=== PATIENT | male | born 1945 | race Caucasian/White ===

== ENCOUNTER → 2016-08-07 09:34 | Outpatient (CLI) | payer MEDICARE ==
[2013-03-20 10:22] VITALS: BMI 19.6
[~2016-08-07 09:34] MED LIST: ASPIRIN 81 MG E81 MG PO; LISINOPRIL2.5 MG PO; PLAVIX75 MG PO; PRAVACHOL40 MG PO; TOPROL XL25 MG PO; VIAGRA25 MG PO
[2016-08-07 10:03] LABS: BASOPHILS 0.4 % (0.0-2.0); EOSINOPHILS 2.6 % (0-7); HEMATOCRIT 45.1 % (42.0-54.0); HEMOGLOBIN 15.3 g/dL (13.5-17.5); IMMATURE GRANULOCYTES 0.2 % (0-5); LYMPHOCYTES 25.4 % (15-50); MCH 32.6 pg (26.0-34.0); MCHC 33.9 g/dL (31.0-37.0); MEAN PLATELET VOLUME 10.3 fL (7.4-10.4); MONOCYTES 10.3 % (2-11); NEUTROPHILS 61.1 % (40-80); RDW 12.6 % (11.5-14.5)
[2016-08-07 10:05] LABS: PLATELET COUNT 141 10x3/uL (130-400)
[2016-08-07 10:54] LABS: ALBUMIN 3.8 g/dL (3.4-5.0); ANION GAP 9.7 mmol/L (8-16); BILIRUBIN - TOTAL 0.96 mg/dL (0.2-1.3); CALCIUM 9.1 mg/dL (8.5-10.1); CARBON DIOXIDE 30.6 mmol/L (21.0-32.0); CHOL - HDL RATIO 2.5 ratio (2.3-4.9); CREATININE - SERUM 1.2 mg/dL (0.6-1.3); LDL-HDL RATIO 1.2 ratio (1.5-3.5); POTASSIUM - SERUM 4.3 mmol/L (3.5-5.1); PROTEIN - SERUM 7.1 g/dL (6.4-8.2); THYROID STIMULATING HORMONE 1.37 uIU/mL (0.36-3.74)
== END | disposition home or self-care (01) ==
LOC: D.LAB 09:34
PROVIDERS: Family Medicine
DX: Z00.00 Encounter for general adult medical examination without abnormal findings (principal); Z12.5 Encounter for screening for malignant neoplasm of prostate; E78.5 Hyperlipidemia, unspecified; J44.9 Chronic obstructive pulmonary disease, unspecified; I25.10 Atherosclerotic heart disease of native coronary artery without angina pectoris; D09.0 Carcinoma in situ of bladder

== ENCOUNTER → 2017-07-02 09:07 | Outpatient (CLI) | payer MEDICARE ==
[2013-03-20 10:22] VITALS: BMI 19.6
== END | disposition home or self-care (01) ==
LOC: D.CT 09:07
DX: I71.4 Abdominal aortic aneurysm, without rupture (principal)

== ENCOUNTER 2017-07-31 05:00 | Inpatient (IN) | payer MEDICARE ==
[2017-07-29 14:43] LABS: ALKALINE PHOSPHATASE 73 U/L (46-116); ALT (SGPT) 26 U/L (10-68); BILIRUBIN - TOTAL 1.02 mg/dL (0.2-1.3); CALC OSMOLALITY 272 mosm/kg (275-300); CALCIUM 9.2 mg/dL (8.5-10.1); CARBON DIOXIDE 30.2 mmol/L (21.0-32.0); CHLORIDE - SERUM 100 mmol/L (98-107); POTASSIUM - SERUM 4.1 mmol/L (3.5-5.1); PROTEIN - SERUM 7.7 g/dL (6.4-8.2); SODIUM 136 mmol/L (136-145); UREA NITROGEN 22 mg/dL (7-18); eGFR NON AFRICAN AMERICAN 78 mL/min (90-120)
[2017-07-29 14:44] LABS: GLUCOSE 65 mg/dL (74-106)
[2017-07-29 14:46] LABS: APPEARANCE CLEAR (CLEAR); BILIRUBIN NEGATIVE (NEGATIVE); COLOR YELLOW (YELLOW); GLUCOSE NEGATIVE (NEGATIVE); KETONE NEGATIVE (NEGATIVE); NITRITE NEGATIVE (NEGATIVE); PROTEIN NEGATIVE (NEGATIVE); UROBILINOGEN NORMAL (NORMAL)
[2017-07-29 14:48] LABS: RED CELLS - URINE 0-5 /hpf (0-5)
[2017-07-29 14:49] LABS: BACTERIA FEW /hpf (NONE SEEN); MUCUS <1+ /lpf (NONE SEEN)
[2017-07-29 14:59] LABS: BASOPHILS 0.3 % (0-2); EOSINOPHILS 1.9 % (0-7); HEMATOCRIT 46.4 % (42.0-54.0); HEMOGLOBIN 15.9 g/dL (13.5-17.5); IMMATURE GRANULOCYTES 0.1 % (0-5); LYMPHOCYTES 23.6 % (15-50); MCH 32.8 pg (26.0-34.0); MCHC 34.3 g/dL (31.0-37.0); MCV 95.7 fL (80.0-100.0); MEAN PLATELET VOLUME 10.7 fL (7.4-10.4); MONOCYTES 7.9 % (2-11); NEUTROPHILS 66.2 % (40-80); PLATELET COUNT 160 10x3/uL (130-400); RBC 4.85 10x6/uL (4.20-6.10); RDW 12.7 % (11.5-14.5); WBC 6.9 10x3/uL (4.8-10.8)
[2017-07-29 15:10] LABS: APTT 28.9 SECONDS (22.8-39.4); INR 0.96 (0.85-1.17); PROTIME 12.4 SECONDS (11.6-15.0)
[2017-07-31] VITALS (22 sets, daily range): BP systolic 99–126; BP diastolic 42–100; Ht 185.4 cm; Wt 68.6 kg
[~2017-07-31] VITALS: Ht 185.4 cm; Wt 68.6 kg
--- NOTE | ~2017-07-31 | HP ---
PATIENT: GLORY GAMEZ MEDICAL RECORD: [id number] ACCOUNT: [id number] LOCATION:[facility] : 47 ADMISSION DATE: 07/31/17 HISTORY AND PHYSICAL EXAMINATION NameGLORY GAMEZ (71yo, M) ID# [id number]. Date/Time07/16/2017 01:77EVWTB09/16/194[facility] Dept.[facility] [facility] ClinicProviRiver CASTELLANOS MDInsuranceMed Primary: [facility] Insurance # : [id number] Policy/Group # : [id number] PCP : MAMADOU ANDERSON Referring Provider Name : MAMADOU ANDERSON Employer Name : [employer] Prescription: CMX - Member is eligible. Chief Complaint AAA, abdominal aortic aneurysm Evaluate for AAA repair Patient's Care Team Primary Care Provider (): MAMADOU ANDERSON: [address] [place] [address], [place] [address], [place] [address], , Referring Provider (): MAMADOU ANDERSON: [address] [place] [address], [place] [address], [place] [address], , Patient's Pharmacies [facility] (ERX): [phone] [place] [address], , Vitals BP:1 / sitting 07/16/2017 01:58 pmHR:72/reg 07/16/2017 01:58 pmHt:6 ft 1 in 07/16/2017 01:59 pmWt:144 lbs 07/16/2017 03:02 pmBMI:19 07/16/2017 03:02 pmAllergies Reviewed Allergies NKDAMedications Reviewed Medications lisinopril 2.5 mg tablet TK 1 T PO D006/27/17 filledCaremarkmetoprolol succinate ER 25 mg tablet,extended release 24 hr TK 1 T PO D007/11/17 filledCaremarkpravastatin 40 mg tablet TK 1 T PO D007/11/17 filledCaremarkViagra 25 mg tablet Take 1 tablet(s) every day by oral route.07/15/17 [facility] FoundationProblems Reviewed Problems Abdominal aortic aneurysm - Onset: 07/15/2017 Danie hematuria Family History Reviewed Family History Mother- Heart disease - PPMFather- Congestive heart failureSocial History Reviewed Social History Cardiology Family history of heart disease?: Y Smoking Status: Former smoker (Notes: quit 2012) High Cholesterol: Y High blood pressure: Y Exercise level: None Overweight: N Obese: N HISTORY AND PHYSICAL [id number] GLORY GAMEZ Diabetes: N Alcohol intake: None Surgical History Reviewed Surgical History Other - 2010 - STENTS (HEART) X3 Past Medical History Reviewed Past Medical History Blood Clots: Y Heart Disease: Y - [place], STENTS X 3 Heart stents: Y - 3 Hyperlipidemia: Y Hypertension: Y Notes: BLOOD CLOTS, HEART ATTACK Documents for Discussion N/A Screening None recorded. HPI Peripheral Vascular Disease Reported by patient. Severity: not limiting Associated Symptoms: no weakness; no numbness; no paresthesias; no skin discoloration; no fever Notes: 71-year-old male with history of abdominal aortic aneurysm, asymptomatic, and has been followed by Dr. DEVINE. The aneurysm is increased in size by about 5 mm over the past 2 years. The patient has risk factors of smoking and hypertension and a family history of a bra in aneurysm but no abdominal or thoracic aneurysms.. He denies claudication or rest pain he currently lives alone ROS Patient reports no fever, no night sweats, no significant weight gain, no significant weight loss, and no exercise intolerance. He reports no dry eyes, no irritation, and no vision change. He reports no difficulty hearing and no ear pain. He reports no frequent nosebleeds and no nose/sinus problems. He reports no sore throat, no bleeding gums, no snoring, no dry mouth, no mouth ulcers, no or a l abnormalities, and no teeth problems. He reports no jugular vein distension and no swollen glands. He reports no chest pain, no arm pain on exertion, no shortness of breath when walking, no shortness of breath when lying down, no palpitations, and no kn o wn heart murmur. He reports no cough, no wheezing, no shortness of breath, and no coughing up blood. He reports no abdominal pain, no vomiting, normal appetite, no diarrhea, not vomiting blood, no nausea, and no constipation. He reports no incontinence, n o difficulty urinating, no hematuria, and no increased frequency. He reports no muscle aches, no muscle weakness, no arthralgias/joint pain, no back pain, and no swelling in the extremities. He reports no abnormal mole, no jaundice, and no rashes. He repor t s no loss of consciousness, no weakness, no numbness, no seizures, no dizziness, and no headaches. He reports no depression, no sleep disturbances, feeling safe in relationship, and no alcohol abuse. He reports no fatigue. He reports no swollen glands and no bruising. He reports no runny nose, no sinus pressure, no itching, no hives, and no frequent sneezing. ROS as noted in the HPI Physical Exam Patient is a 71-year-old male. Constitutional: General Appearance well nourished and developed and healthy-appearing. Level of Distress NAD. Ambulation ambulating normally. HISTORY AND PHYSICAL [id number] GLORY GAMEZ Cardiovascular: Apical Impulse not displaced or no thrill. Heart Auscultation normal s1 and s2; no murmurs, rubs, or gallops; and RRR. Arterial Pulses no abdominal aorta bruits, femoral bruits , or popliteal bruits and 2+ bilateral, carotid 2+ bilateral, femoral 2+ bilateral, popliteal 2+ bilateral, and dorsalis pedis 2+ bilateral; to loss palpable bilateral femoral pulses 1+ palpable bilateral dorsalis pedis pulses, no Doppler left posterior tibial, week Doppler right posterior tibial.. Edema no edema or varicosities. Lungs: Repiratory Effort no dyspnea. Percussion no hyperresonance or dullness or flatness. Auscultation no wheezing, rhonchi, or rales / crackles and breathing sounds normal, good air movement, and CTA except as noted. Abdomen: Bowl Sounds normal. Inspection and Palpation no tenderness, guarding, masses, or rebound tenderness and soft and non-distended; palpable pulsatile periumbilical abdominal mass. Liver non-tender and no hepatomegaly. Spleen non-tender and no splenomegaly. Hernia none palpable. Musculoskeletal System: Gait And Stance normal gait and stance. Digits and Nails normal nails and no cyanosis. Neurologic: Cranial Nerves grossly intact. Reflexes DTRs 2+ bilaterally throughout. Sensation grossly intact. Lymph Nodes: Lymph Nodes no cervical LAD, supraclavicular LAD, axillary LAD, or inguinal LAD. Eyes: Lids and Conjunctivae no discharge or pallor and non-injected. Pupils PERRLA. Cornea grossly intact. EOM EOMI. Lens clear. Sclerae non-icteric. Neck: Neck no masses, enlarged lymph nodes, or carotid bruits and supple and trachea midline. Thyroid no enlargement or nodules and non-tender. Skin: Inspection and Palpation no rash, lesions, ulcers, jaundice, or abnormal nevi. Assessment / Plan 1. Abdominal aortic aneurysm I71.4: Abdominal aortic aneurysm, without rupture Patient Instructions the patient will develop a plan for family to be with him in the perioperative period and we will be in touch after the film was reviewed by [employer] Discussion Notes we discussed the risk of surgery, the alternatives, and the benefits. It is likely the patient will require right femoral cutdown with localized endarterectomy and a percutaneous approach on t he left. It appears that the left proximal common iliac is a localized dissection and there is severe bilateral iliac calcification. The aneurysm appears to have a normal neck with a good landing zone. HISTORY AND PHYSICAL [id number] GLORY GAMEZ, STEFANIE Coreas MD at 1556 CC: [id number] DICTATION DATE: 07/16/17 1310 [employer]EST [employer] EQUIPMENT OPERATOR: JERMAINE 07/24/17 0916 PRE IN [facility] [address] [place] [address]
--- NOTE | ~2017-07-31 | OP ---
PATIENT NAME: GLORY GAMEZ MEDICAL RECORD: [id number] :47 LOCATION:D.CVI D.CV05 ADMISSION DATE:07/31/17 SURGEON: HÉCTOR CASTELLANOS MD DATE OF OPERATION: 07/31/2017 SURGEON: Héctor Castellanos MD DUMP GROUNDS CHECKER: Jeremias Gutiérrez MD. PROCEDURES PERFORMED: 1. Right femoral endarterectomy. 2. Open femoral exposure left femoral artery. 3. Placement of endoluminal abdominal aortic aneurysm repair with bifurcated device and 2 docking limbs. 4. Rad SNI Endo AAA repair. PREOPERATIVE DIAGNOSES: Abdominal aortic aneurysm and right femoral stenosis. POSTOPERATIVE DIAGNOSES: Abdominal aortic aneurysm and right femoral stenosis. ANESTHESIA: General endotracheal anesthesia. ESTIMATED BLOOD LOSS: 200 cc with 100 cc Cell Saver retransfusion. COMPLICATIONS: None. SPECIMENS: None. CONDITION: Stable. DISPOSITION: ICU. OPERATIVE FINDINGS: 1. Placement of the bifurcated endograft without complication and 2 limbs to just above the bifurcation of the iliacs. 2. Dense posterior plaque in the right femoral with an endarterectomy. The artery at that point was somewhat thin and slightly enlarged, although not clearly an aneurysm, was closed primarily. Good resultant pulses in the profunda and superficial femoral and later stronger pedal pulses on the left side cutdown performed. 3. Completion arteriogram with good placement and good flow. OPERATIVE INDICATION: Enlarging abdominal aortic aneurysm, severe femoral arterial disease and stenosis. OPERATIVE SUMMARY IN DETAIL: The patient brought to the operating suite where general anesthesia was obtained, monitoring catheter was placed by anesthesia and the patient placed supine on the table. The abdomen, groins and thighs were sterilely prepped and draped. On the right side oblique incision was made, cut and taken down through subcutaneous tissue. Femoral artery exposed, branches encircled and the external iliac was exposed behind the inguinal ligament where control was gained proximally. On the left side, the femoral artery was exposed and branches were encircled with loops. Heparin was given. After the heparin had been, given inflow to the right groin was clamped with backbleeding controlled with vessel loops. The arteriotomy was made, taken up just behind OPERATIVE REPORT [id number] GLORY GAMEZ the inguinal ligament. Endarterectomy was performed. The plaque feathered well proximally and was removed distally. It also feathered well. All bits of loose debris were removed. Proximal control was contained with a vessel loop and the 14-H[place] Konger sheath was placed in the right. Arteriogram was performed and an 8-[place]er sheath placed on the left. No predilation was performed. The 14-[place]er sheath on the right was placed just at the aortic bifurcation. The main body was inserted and using the previously made arteriogram, position was confirmed. First segment was deployed then the implant was positioned precisely at approximately 0.5 cm below the renal arteries. Angiographic catheter was removed and the remainder of the proximal stent was deployed. The polymer injection port was attached after the polymer had been premixed. The AB guidewire tip brought down to the radiopaque marker and the polymer was observed to be filling normally. The integrated crossover lumen was used to capture the guidewire. Position was confirmed and the 0.18 guidewire was placed. A 14 x 140 iliac limb system was deployed over the wire and place at the appropriate site after arteriogram to confirm the bifurcation and after dilating the proximal portion with a coated balloon. Then the right limb, also 14 x 140 was placed. Each side individually was dilated at 3 separate sites with a 12 x 40 balloon on the limbs. Final injections were noted to be a good position. Slightly lower proximal position of the left limb, but well within the main body. On the left side artery, the was closed with interrupted suture and flow was restored. On the right side, the endarterectomy site was again irrigated and closed. Back bleeding was allowed and the anastomosis completed. Good signal was noted. Both groins were closed in 3 layers. Dermabond was placed on the skin. Good pulse examination and anesthesia reversed to CV ICU. TRANSINT:[id number] Voice Confirmation ID: [id number] DOCUMENT ID: [id number] HÉCTOR CASTELLANOS MD at 1043 CC: MAMADOU ANDERSON and TALITA DEVINE [id number] DICTATION DATE: 07/31/17 1319 LEAD PRINCIPAL TECHNICAL ARCHITECT: 07/31/17 1345 ADM IN [facility] [address] [place] [id number]
[2017-08-01] VITALS (25 sets, daily range): BP systolic 90–142; BP diastolic 44–71
[2017-08-01 03:47] LABS: MCH 32.2 pg (26.0-34.0); MCHC 33.3 g/dL (31.0-37.0); MCV 96.5 fL (80.0-100.0); MEAN PLATELET VOLUME 10.2 fL (7.4-10.4); RBC 3.73 10x6/uL (4.20-6.10); RDW 12.8 % (11.5-14.5); WBC 9.2 10x3/uL (4.8-10.8)
[2017-08-01 03:54] LABS: CALC OSMOLALITY 279 mosm/kg (275-300); CALCIUM 8.1 mg/dL (8.5-10.1); CARBON DIOXIDE 29.4 mmol/L (21.0-32.0); CHLORIDE - SERUM 104 mmol/L (98-107); POTASSIUM - SERUM 3.7 mmol/L (3.5-5.1); SODIUM 140 mmol/L (136-145); UREA NITROGEN 10 mg/dL (7-18); eGFR NON AFRICAN AMERICAN 78 mL/min (90-120)
[2017-08-01 04:02] LABS: GLUCOSE 129 mg/dL (74-106)
[2017-08-02] VITALS (24 sets, daily range): BP systolic 110–135; BP diastolic 31–79
[2017-08-02 05:02] LABS: HEMATOCRIT 35.2 % (42.0-54.0); HEMOGLOBIN 11.8 g/dL (13.5-17.5); MCH 32.5 pg (26.0-34.0); MCHC 33.5 g/dL (31.0-37.0); MEAN PLATELET VOLUME 10.6 fL (7.4-10.4); RBC 3.63 10x6/uL (4.20-6.10); RDW 12.9 % (11.5-14.5); WBC 9.8 10x3/uL (4.8-10.8)
[2017-08-02] MEDS ORDERED: NICODERM C1 PATCH .1 TRANSDERM (12:13)
[2017-08-02] MEDS ORDERED: HYDROCODON-ACE1 EAC7 PO (12:17)
[2017-08-03] VITALS (8 sets, daily range): BP systolic 110–126; BP diastolic 64–68
[2017-08-03 05:30] LABS: HEMOGLOBIN 12.2 g/dL (13.5-17.5); MCH 32.2 pg (26.0-34.0); MCHC 33.9 g/dL (31.0-37.0); MEAN PLATELET VOLUME 10.3 fL (7.4-10.4); RBC 3.79 10x6/uL (4.20-6.10); RDW 12.7 % (11.5-14.5); WBC 9.4 10x3/uL (4.8-10.8)
== END 2017-08-03 10:50 | disposition home or self-care (01) | DRG 269 ==
LOC: D.SDCHOLD 05:00 → D.CVICU 05:00 → D.SDCHOLD 07:30 → D.CVICU 11:29
PROVIDERS: Thoracic Surgery (Cardiothoracic Vascular Surgery)
PROC: 04CK0ZZ Extirpation of Matter from Right Femoral Artery, Open Approach (ICD-10-PCS; 2017-07-31)
PROC: 04V03EZ Restriction of Abdominal Aorta with Branched or Fenestrated Intraluminal Device, One or Two Arteries, Percutaneous Approach (ICD-10-PCS; principal; 2017-07-31 07:30)
DX: I71.4 Abdominal aortic aneurysm, without rupture (principal); I10 Essential (primary) hypertension; E78.5 Hyperlipidemia, unspecified; I70.201 Unspecified atherosclerosis of native arteries of extremities, right leg

== ENCOUNTER → 2017-08-23 08:15 | Outpatient (CLI) | payer MEDICARE ==
[2017-07-31 14:25] VITALS: BMI 20.5
[~2017-08-23 08:15] MED LIST changes: +HYDROCODON-ACE1 EAC7 PO; +NICODERM C1 PATCH .1 TRANSDERM
== END | disposition home or self-care (01) ==
LOC: D.CT 08:15
DX: I71.4 Abdominal aortic aneurysm, without rupture (principal)

== ENCOUNTER → 2018-04-07 10:43 | Outpatient (CLI) | payer MEDICARE ==
[2017-07-31 14:25] VITALS: BMI 20.5
== END | disposition home or self-care (01) ==
LOC: D.CT 10:43
DX: I71.4 Abdominal aortic aneurysm, without rupture (principal)

== ENCOUNTER → 2018-11-03 13:21 | Outpatient (CLI) | payer MEDICARE ==
[2017-07-31 14:25] VITALS: BMI 20.5
== END | disposition home or self-care (01) ==
LOC: D.US 13:21
PROVIDERS: ATTEND Thoracic Surgery (Cardiothoracic Vascular Surgery)
DX: I70.209 Unspecified atherosclerosis of native arteries of extremities, unspecified extremity (principal)

== ENCOUNTER → 2018-12-05 08:44 | Outpatient (CLI) | payer MEDICARE ==
[2017-07-31 14:25] VITALS: BMI 20.5
== END | disposition home or self-care (01) ==
LOC: D.US 08:30
PROVIDERS: ATTEND Family Medicine
DX: R10.31 Right lower quadrant pain (principal)

== ENCOUNTER → 2019-03-17 08:30 | Outpatient (CLI) | payer MEDICARE ==
[2017-07-31 14:25] VITALS: BMI 20.5
== END | disposition home or self-care (01) ==
LOC: D.CT 08:30
PROVIDERS: ATTEND Thoracic Surgery (Cardiothoracic Vascular Surgery)
DX: I71.4 Abdominal aortic aneurysm, without rupture (principal)

== ENCOUNTER → 2020-08-18 09:14 | Outpatient (CLI) | payer OTHER ==
[2020-05-30 09:33] VITALS: BMI 19.0
[2020-08-18 10:13] LABS: BASOPHILS 0.4 % (0-2); EOSINOPHILS 4.7 % (0-7); HEMATOCRIT 45.8 % (42.0-54.0); HEMOGLOBIN 15.2 g/dL (13.5-17.5); IMMATURE GRANULOCYTES 0.2 % (0-5); LYMPHOCYTE ABS# 1.46 10x3/uL (1.32-3.57); LYMPHOCYTES 26.3 % (15-50); MCH 31.6 pg (26.0-34.0); MCHC 33.2 g/dL (31.0-37.0); MCV 95.2 fL (80.0-100.0); MEAN PLATELET VOLUME 10.3 fL (7.4-10.4); MONOCYTES 9.7 % (2-11); NEUTROPHIL ABS# 3.26 10x3/uL (1.78-5.38); NEUTROPHILS 58.7 % (40-80); PLATELET COUNT 170 10x3/uL (130-400); RBC 4.81 10x6/uL (4.20-6.10); RDW 12.3 % (11.5-14.5); WBC 5.6 10x3/uL (4.8-10.8)
[2020-08-18 10:34] LABS: ALBUMIN 3.8 g/dL (3.4-5.0); ANION GAP 9.9 mmol/L (8-16); BILIRUBIN - TOTAL 0.83 mg/dL (0.2-1.3); CALCIUM 9.2 mg/dL (8.5-10.1); CARBON DIOXIDE 31.2 mmol/L (21.0-32.0); CHOL - HDL RATIO 2.9 ratio (2.3-4.9); CREATININE - SERUM 1.1 mg/dL (0.6-1.3); LDL-HDL RATIO 1.6 ratio (1.5-3.5); POTASSIUM - SERUM 4.1 mmol/L (3.5-5.1); PROTEIN - SERUM 7.2 g/dL (6.4-8.2); THYROID STIMULATING HORMONE 2.3 uIU/mL (0.36-3.74)
[2020-08-18 11:10] LABS: BILIRUBIN NEGATIVE (NEGATIVE); KETONE NEGATIVE (NEGATIVE); NITRITE NEGATIVE (NEGATIVE); SQUAMOUS EPITHELIAL RARE HPF (0-4); UROBILINOGEN NORMAL mg/dL (< 2); WHITE CELLS - URINE OCC HPF (0-1)
== END | disposition home or self-care (01) ==
LOC: D.LAB 09:14
PROVIDERS: ATTEND Family Medicine
DX: Z00.00 Encounter for general adult medical examination without abnormal findings (principal); I25.10 Atherosclerotic heart disease of native coronary artery without angina pectoris; J44.9 Chronic obstructive pulmonary disease, unspecified; Z79.899 Other long term (current) drug therapy